=== PATIENT | female | born 1995 | race Caucasian/White ===

== ENCOUNTER 2017-02-13 01:14 | Emergency (ER) | payer OTHER ==
[~2017-02-13] VITALS: Ht 157.5 cm; Wt 61.7 kg
[2017-02-13 01:24] VITALS: Ht 157.5 cm; Wt 61.7 kg
[2017-02-13 03:49] VITALS: BP 119/60
== END 2017-02-13 03:50 | disposition home or self-care (01) ==
LOC: ED 01:14
DX: J09.X2 Influenza due to identified novel influenza A virus with other respiratory manifestations (principal)
CPT/HCPCS: 87804; J1885; Q0092

== ENCOUNTER 2019-01-07 15:23 | Emergency (ER) | payer OTHER ==
[~2019-01-07] VITALS: Ht 157.5 cm; Wt 54.4 kg
[2019-01-07 15:31] VITALS: Ht 157.5 cm; Wt 54.4 kg
[2019-01-07 19:38] VITALS: BP 107/69
== END 2019-01-07 19:39 | disposition home or self-care (01) ==
LOC: ED 15:23
DX: B34.9 Viral infection, unspecified (principal)
CPT/HCPCS: Q0162

== ENCOUNTER 2019-01-30 22:59 | Emergency (ER) | payer OTHER ==
[~2019-01-30] VITALS: Ht 162.6 cm; Wt 57.2 kg
[2019-01-30 23:02] VITALS: Ht 162.6 cm; Wt 57.2 kg
[2019-01-31 00:10] LABS: BASOPHIL % 0.8 % (0-2); PLATELET COUNT 260 x10^3mcL (130-400); RED CELL DISTRIBUTION WIDTH 13.2 % (11.5-14.5)
[2019-01-31 00:14] LABS: CALCIUM 8.7 mg/dL (8.5-10.1); CARBON DIOXIDE 28.9 mmol/L (21-32); CHLORIDE SERUM 101 mmol/L (98-107); CREATININE SERUM 0.8 mg/dL (0.6-1.0); GFR1 > 60 mL/min; GLUCOSE SERUM 90 mg/dL (74-106); POTASSIUM SERUM 3.1 mmol/L (3.5-5.1); SODIUM SERUM 138 mmol/L (136-145)
[2019-01-31 00:19] LABS: ALBUMIN 3.9 g/dL (3.4-5.0); ALKALINE PHOSPHATASE 82 U/L (46-116); ALT/SGPT 17 U/L (14-59); AST/SGOT 18 U/L (15-37); BILIRUBIN TOTAL 0.4 mg/dL (0.20-1.00)
[2019-01-31 01:15] VITALS: BP 107/56
[2019-01-31 01:27] LABS: AMPHETAMINE QUAL UR POSITIVE (See below)
== END 2019-01-31 02:14 | disposition home or self-care (01) ==
LOC: ED 22:59
PROVIDERS: Emergency Medicine
DX: F15.10 Other stimulant abuse, uncomplicated (principal); E87.6 Hypokalemia
CPT/HCPCS: J2060

== ENCOUNTER 2019-02-03 20:34 | Emergency (ER) | payer OTHER ==
[~2019-02-03] VITALS: Ht 170.2 cm; Wt 54.4 kg
[2019-02-03 20:42] VITALS: BP 108/86; Ht 170.2 cm; Wt 54.4 kg
== END 2019-02-03 22:57 | disposition left against medical advice (07) ==
LOC: ED 20:34
DX: Z53.21 Procedure and treatment not carried out due to patient leaving prior to being seen by health care provider (principal)